=== PATIENT | female | born 1985 | race Hispanic/Latino ===

== ENCOUNTER 2024-09-28 21:03 | Emergency (ER) | payer OTHER ==
[2024-09-28] MEDS ORDERED: METOCLOPRAMIDE 10 MG/2mL INJ ONE (21:38)
[2024-09-28] MEDS ORDERED: DIPHENHYDRAMINE 50 MG/ML VIAL ONE (21:38)
[2024-09-28] MEDS ORDERED: KETOROLAC 30 MG/ML INJ ONE (21:38)
[2024-09-28] MEDS ORDERED: NA CHLORIDE 0.9% 1,000 ML ONE (21:38)
[2024-09-28] MEDS ORDERED: NA CHLORIDE 0.9% 50 ML ONE (21:39)
[2024-09-28 21:51] LABS: Specific Gravity 1.016 (1.005-1.030); Urine Bilirubin NEGATIVE (Negative); Urine Blood Negative (Negative); Urine Clarity Clear (Clear); Urine Color Light-Yellow (Yellow); Urine Glucose NEGATIVE (Negative); Urine Ketones NEGATIVE (Negative); Urine Microscopic Reflex YN NO UMIC; Urine Nitrite NEGATIVE (Negative); Urine Protein NEGATIVE (Negative); Urine Urobilinogen Normal (Normal)
[2024-09-28 21:52] LABS: Specific Gravity 1.016 (1.005-1.030)
[2024-09-28 22:10] LABS: ALT/SGPT 35 U/L (13-56); AST/SGOT 15 U/L (15-37); Albumin 3.6 g/dL (3.4-5.0); Albumin/Globulin Ratio 0.9 (1.1-1.8); Alkaline Phosphatase 101 U/L (45-117); Anion Gap 9.1 mEq/L (5.0-15.0); BUN Blood Urea Nitrogen 10 mg/dL (7-18); Bicarbonate 26 mEq/L (21-32); Bilirubin Total 0.4 mg/dL (0.2-1.0); Globulin 3.9 g/dL (2.3-3.5); Glomerular Filtration Rate 95 ml/min (=/>90); Glucose Level 104 mg/dL (74-106); Potassium 4.1 mEq/L (3.5-5.1); Protein, Total 7.5 g/dL (6.4-8.2); Sodium Level 141 mEq/L (136-145); Troponin High Sensitivity 3.8 pg/mL (<58.9)
[2024-09-28 22:14] LABS: Bilirubin Direct < 0.2 mg/dL (0-0.2); Bilirubin Indirect, Calculated 0.2 mg/dL (0.2-0.8)
[2024-09-28 22:19] LABS: Absolute Eosinophils 0.1 K/uL (0-0.5); Absolute Lymphocytes (CBC) 2.7 K/uL (0.7-4.9); Absolute Monocytes 0.5 K/uL (0.1-1.3); Absolute Neutrophil 4.8 K/uL (1.8-8.0); Basophils % 0.3 % (0-1.3); Eosinophils % 1.4 % (0-4.4); Hematocrit 41.3 % (36.0-45.0); Hemoglobin 14.1 g/dL (12.0-15.0); MCH 30.9 pg (27.0-35.0); MCV 90.7 fL (80-100); MPV 9.9 fL (7.6-11.3); Monocytes % 6.1 % (3.3-12.3); Neutrophils % 59.2 % (41.7-73.7); Platelets 246 thou/uL (152-406); RBC Red Blood Cell Count 4.55 M/uL (3.86-4.86); Red Cell Distribution Width 12.7 % (12.1-15.2)
--- NOTE | 2024-09-28 22:31 | RAD REPORT ---
EXAM: Chest Single View HISTORY: 38 years Female CHEST PAIN COMPARISON: None. FINDINGS: LUNGS/PLEURA: The lungs are clear. No pleural effusions or pneumothorax. No pulmonary edema. CARDIAC/MEDIASTINUM: The cardiac silhouette is within normal limits. UPPER ABDOMEN: No significant abnormality. BONES: No acute abnormality. LINES/TUBES/OTHER: N/A IMPRESSION: No evidence of acute cardiopulmonary disease.
--- NOTE | 2024-09-28 23:20 | RAD REPORT ---
EXAM: Head Brain Wo Cont INDICATION: 38-year-old female with dizziness and headache. COMPARISON: No relevant imaging studies available. TECHNIQUE: TECHNIQUE: Axial CT images of the brain were performed using dose reduction techniques i ncluding automated exposure control and/or adjustment of the mA and/or kV according to patient size, and/or iterative reconstruction techniques. Coronal and sagittal reformatted images were also p erformed. DLP: 884.3. No IV contrast administered. CTDI: 38.785. FINDINGS: Brain parenchyma demonstrates no mass effect, shift, ventriculomegaly, or hemorrhage. Normal elizabeth/white matter differentiation. No extra-axial fluid collection. Osseous structures intact. Bilateral mastoidal air cells and paranasal sinuses are clear. Bilateral intraorbital contents demonstrate no acute abnormality. IMPRESSION: No acute intracranial process. Electronically signed by: Saad Ochoa MD 09/28/2024 11:14 PM CDT RP Due to temporary technical issues with the PACS/Thinkr reporting system, reports are being vivien d by the in-house radiologist without review as a courtesy to ensure prompt reporting the interpreting radiologist is fully responsible for the content of the report. Transcribed Date/Time: 09/28/2024 11:19 PM
--- NOTE | 2024-09-29 00:03 | EDPHYS ---
Physician Documentation [facility] Name: Katelyn Pyle Age: 38 yrs Sex: Female : 1985 Arrival Date: 09/28/2024 Time: 21:03 Bed 8 Private MD: ED Physician Shaq Jim HPI: 09/28 21:30 This 38 yrs old Female presents to ER via Ambulatory with complaints of High cp Blood Pressure, Headache. 21:30 The patient has elevated blood pressure and discovered this at home, with a home cp device. Patient is a 38-year-old female with no significant past medical history who presents to the emergency department with complaints of a general headache for the past few days. Patient reports concern that her blood pressure has been elevated with a systolic pressure of 140-150s. Patient is complaining of right-sided chest pain that radiates down her right arm and pain into her back. 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 - Infectious Disease History:: Denies. - Social history:: Smoking status: Patient denies any tobacco usage or history of. ROS: 21:33 Constitutional: Negative for body aches, chills, fever, poor PO intake, cp 21:33 Eyes: Negative for injury, pain, redness, and discharge, cp 21:33 ENT: Negative for drainage from ear(s), ear pain, sore throat, difficulty swallowing, difficulty handling secretions, 21:33 Cardiovascular: Positive for chest pain, of the right side of chest, Negative for edema, palpitations, 21:33 Respiratory: Negative for cough, shortness of breath, wheezing, 21:33 Abdomen/GI: Negative for abdominal pain, vomiting, diarrhea, constipation, 21:33 Neuro: Positive for dizziness, headache, Negative for altered mental status, loss of consciousness, syncope, weakness, 21:33 All other systems are negative, Exam: 21:28 ECG was reviewed by the Attending Physician. cp 21:35 Constitutional: The patient appears in no acute distress, alert, awake, cp non-diaphoretic, non-toxic, well developed, well nourished, obese, uncomfortable, 21:35 Head/Face: Normocephalic, atraumatic. cp 21:35 Eyes: Periorbital structures: appear normal, Pupils: equal, round, and reactive to light and accomodation, Extraocular movements: intact throughout, Conjunctiva: normal, no exudate, no injection, Sclera: no appreciated abnormality, Lids and lashes: appear normal, bilaterally, 21:35 ENT: External ear(s): are unremarkable, Ear canal(s): are normal, clear, TM's: dullness, bilaterally, Nose: is normal, Mouth: Lips: moist, Oral mucosa: moist, Posterior pharynx: Airway: no evidence of obstruction, patent, 21:35 Neck: ROM/movement: is normal, is supple, without pain, no range of motions limitations, no meningismus, 21:35 Chest/axilla: Inspection: normal, 21:35 Cardiovascular: Rate: normal, Rhythm: regular, Edema: is not appreciated, JVD: is not appreciated, 21:35 Respiratory: the patient does not display signs of respiratory distress, Respirations: normal, no use of accessory muscles, no retractions, labored breathing, is not present, Breath sounds: are clear throughout, no decreased breath sounds, no stridor, no wheezing, 21:35 Abdomen/GI: Inspection: abdomen appears normal, Palpation: abdomen is soft and non-tender, in all quadrants, 21:35 Back: ROM is normal, CVA tenderness, is absent, 21:35 Neuro: Orientation: to person, place \T\ time. Mentation: is normal, Cerebellar function: is grossly normal, Motor: moves all fours, strength is normal, Sensation: is normal, Vital Signs: 21:10 BP 129 / 86; Pulse 77; Resp 16; Temp 97(IR); Pulse Ox 95% on R/A; Weight 107.05 kg (R); cm10 Height 5 ft. 2 in. ; Pain 8/10; 21:44 BP 125 / 84; Pulse 60; Resp 19; Pulse Ox 99% ; al5 22:00 BP 111 / 72; Pulse 74; Resp 16; Pulse Ox 96% ; al5 23:00 BP 116 / 71; Pulse 79; Resp 18; Pulse Ox 100% on R/A; hm5 09/29 00:09 BP 111 / 72; Pulse 71; Resp 18; Pulse Ox 99% on R/A; hm5 09/28 21:10 Body Mass Index 42.34 (107.05 kg, 159 cm) cm10 09/28 21:10 Pain Scale: Adult cm10 MDM: 09/28 21:13 Medical Screening Exam initiated cp 09/29 00:01 Data reviewed: vital signs, nurses notes, lab test result(s), EKG, radiologic studies, cp CT scan, plain films, and as a result, I will discharge patient. 00:01 Differential diagnosis: hypertensive crisis, Malignant HTN, CVA, intracerebral cp hemorrhage. I considered the following discharge prescriptions or medication management in the emergency department Medications were administered in the Emergency Department. See MAR. Independent interpretation of the following test(s) in the Emergency Department EKG: See my EKG interpretation above. Counseling: I had a detailed discussion with the patient and/or guardian regarding the historical points, exam findings, and any diagnostic results supporting the discharge/admit diagnosis, lab results, radiology results, to return to the emergency department if symptoms worsen or persist or if there are any questions or concerns that arise at home. Response to treatment: the patient's symptoms have markedly improved after treatment, and as a result, I will discharge patient. ED course: Patient reports headache markedly improved. Blood pressure remained wnl. Will discharge to home for continued monitoring. 09/28 21:29 Order name: Basic Metabolic Panel; Complete Time: 23:10 09/28 23:10 Interpretation: Normal except: CL 110. 09/28 21:29 Order name: CBC with Diff; Complete Time: 23:10 09/28 21:29 Order name: D-Dimer; Complete Time: 23:10 09/28 21:29 Order name: LFT's; Complete Time: 23:10 09/28 21:29 Order name: Magnesium; Complete Time: 23:10 09/28 21:29 Order name: Troponin HS; Complete Time: 23:10 09/28 21:29 Order name: UA Rfx Narendra Cult if indicated; Complete Time: 23:10 09/28 21:29 Order name: Test, Urine; Complete Time: 23:10 09/28 21:29 Order name: XRAY Chest (1 view); Complete Time: 23:10 09/28 23:11 Interpretation: Report review. cp 09/28 21:29 Order name: CT Head Brain wo Cont cp 09/28 23:44 Interpretation: Report reviewed. cp 09/28 21:29 Order name: EKG; Complete Time: 21:30 cp 09/28 21:29 Order name: Cardiac monitoring; Complete Time: 21:33 cp 09/28 21:29 Order name: EKG - Nurse/Tech; Complete Time: 21:33 cp 09/28 21:29 Order name: IV Saline Lock; Complete Time: 21:33 cp 09/28 21:29 Order name: Labs collected and sent; Complete Time: 21:33 cp 09/28 21:29 Order name: O2 Per Protocol; Complete Time: 21:44 cp 09/28 21:29 Order name: O2 Sat Monitoring; Complete Time: :33 cp EC/17 21:28 Rate is 74 beats/min. Rhythm is regular. CO interval is normal. QRS interval is normal. cp QT interval is normal. T waves are Inverted in leads III, aVR. Interpreted by me. Reviewed by me. Administered Medications: 21:45 Drug: NS 0.9% IV 1000 ml IV at 1000 ml once; to be given as a bolus over 60 minutes 5 Route: IV; Rate: 1000 ml; Site: right antecubital; 22:45 Follow up: IV Status: Completed infusion; IV Intake: 1000ml vc1 21:45 Drug: metoCLOPramide IVP 10 mg IVP once; over 1 to 2 minutes Route: IVP; Site: right 5 antecubital; 23:07 Follow up: Response: No adverse reaction 5 21:45 Drug: diphenhydrAMINE IVP 25 mg IVP once Route: IVP; Site: right antecubital; 5 23:08 Follow up: Response: No adverse reaction [facility] 21:45 Drug: Ketorolac IVP 15 mg IVP once Route: IVP; Site: right antecubital; [facility] 23:07 Follow up: Response: No adverse reaction [facility] Disposition: 09/29 02:34 Co-signature as Attending Physician, Shaq Jim MD I reviewed the patient's care rt provided by the Advanced Practice Provider and agree with the diagnosis and treatment plan. Disposition Summary: 09/29/24 00:02 Discharge Ordered Notes: Location: Home cp Problem: new cp Symptoms: have improved cp Condition: Stable cp Diagnosis - Headache cp - Chest pain, unspecified cp Followup: cp - With: Private Physician - When: 2 - 3 days - Reason: Recheck today's complaints Discharge Instructions: - Discharge Summary Sheet cp - Nonspecific Chest Pain, Adult cp - General Headache Without Cause cp - Migraine Headache cp - Aspirin and Your Heart cp Forms: - Medication Reconciliation Form cp - Antibiotic Education cp - Prescription Opioid Use cp - Patient Portal Instructions cp - Leadership Thank You Letter cp Prescriptions: - Anaprox DS 550 mg Oral Tablet - take 1 tablet ORAL route every 12 hours As needed; 20 tablet; Refills: 0, cp Product Selection Permitted Signatures: Dispatcher [employer] EDMS Cas Lopez PA PA cp Shaq Jim MD MD rt Carlita Tong RN RN cm10 Renetta Fisher RN RN hm5 Cecelia Barry RN vc1 Corrections: (The following items were deleted from the chart) 09/28 21:30 21:30 Head Brain Wo Cont+CT.RAD.BRZ ordered. EDMS EDMS
--- NOTE | 2024-09-29 00:03 | ER ---
Nurse's Notes [facility] Name: Katelyn Pyle Age: 38 yrs Sex: Female : 1985 Arrival Date: 09/28/2024 Time: 21:03 Bed 8 Private MD: Diagnosis: Headache;Chest pain, unspecified Presentation: 09/28 21:10 Chief complaint: Patient states: Headache onset a few days ago and high blood pressure. cm10 Pt states that she does not have a history of HTN. Took her BP and her systolic was 140-150. Pt also reports right sided chest pain that radiates to her right arm. Coronavirus screen: Client denies travel out of the [place] in the last 14 days. Ebola Screen: Patient denies travel to an Ebola-affected area in the 21 days before illness onset. Initial Sepsis Screen: Does the patient meet any 2 criteria? No. Patient's initial sepsis screen is negative. Does the patient have a suspected source of infection? No. Patient's initial sepsis screen is negative. Risk Assessment: Do you want to hurt yourself or someone else? Patient reports no desire to harm self or others. Onset of symptoms was September 28, 2024. 21:10 Method Of Arrival: Ambulatory 10 21:10 Acuity: MAAME 3 cm10 Triage Assessment: 21:12 General: Appears in no apparent distress. comfortable, Behavior is calm, cooperative. cm10 Neuro: No deficits noted. Level of Consciousness is awake, alert, obeys commands, Oriented to person, place, time, situation, Appropriate for age. Respiratory: No deficits noted. Airway is patent Respiratory effort is even, unlabored, Respiratory pattern is regular, symmetrical. 21:29 Pain: Also complains of no other associated symptoms. 5 21:31 Headache History: Denies prior headaches. Pain: Complains of pain in chest, headache. 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 - Infectious Disease History:: Denies. - Social history:: Smoking status: Patient denies any tobacco usage or history of. Screenin:23 [facility] ED Fall Risk Assessment (Adult) History of falling in the last 3 months, hm5 including since admission No falls in past 3 months (0 pts) Confusion or Disorientation No (0 pts) Intoxicated or Sedated No (0 pts) Impaired Gait No (0 pts) Mobility Assist Device Used No (0 pt) Altered Elimination No (0 pt) Score/Fall Risk Level 0 - 2 = Low Risk. [facility] ED Fall Risk Assessment (Adult) Score/Fall Risk Level 0 - 2 = Low Risk Oriented to surroundings, Maintained a safe environment, Hourly rounding (assess needs \T\ fall precautionary measures) done. Abuse screen: Denies threats or abuse. Nutritional screening: No deficits noted. Tuberculosis screening: No symptoms or risk factors identified. Assessment: 21:23 General: Appears in no apparent distress. Behavior is calm, cooperative, appropriate hm5 for age. Pain: Complains of pain in face and head Pain does not radiate. Pain currently is 5 out of 10 on a pain scale. Quality of pain is described as aching, sharp, Pain began gradually. Neuro: No deficits noted. Cardiovascular: Reports chest pain, Denies diaphoresis, lightheadedness, nausea, palpitations, shortness of breath, syncope, vomiting, Heart tones S1 S2 present Capillary refill < 3 seconds is brisk Patient's skin is warm and dry. Pulses are all present. Rhythm is sinus rhythm Chest pain is described as mild, quality is sharp, is located in right began 1 day ago episodes are intermittent. Respiratory: No deficits noted. Respiratory: Denies shortness of breath. GI: No deficits noted. Patient currently denies abdominal pain, nausea, vomiting. : No deficits noted. No signs and/or symptoms were reported regarding the genitourinary system. EENT: No deficits noted. No signs and/or symptoms were reported regarding the EENT system. Derm: No deficits noted. No signs and/or symptoms reported regarding the dermatologic system. Musculoskeletal: No deficits noted. No signs and/or symptoms reported regarding the musculoskeletal system. 23:33 Reassessment: Patient appears in no apparent distress at this time. No changes from al5 previously documented assessment. Patient and/or family updated on plan of care and expected duration. Pain level reassessed. Patient is alert, oriented x 3, equal unlabored respirations, skin warm/dry/pink. Vital Signs: 21:10 BP 129 / 86; Pulse 77; Resp 16; Temp 97(IR); Pulse Ox 95% on R/A; Weight 107.05 kg (R); cm10 Height 5 ft. 2 in. ; Pain 8/10; 21:44 BP 125 / 84; Pulse 60; Resp 19; Pulse Ox 99% ; al5 22:00 BP 111 / 72; Pulse 74; Resp 16; Pulse Ox 96% ; al5 23:00 BP 116 / 71; Pulse 79; Resp 18; Pulse Ox 100% on R/A; hm5 09/29 00:09 BP 111 / 72; Pulse 71; Resp 18; Pulse Ox 99% on R/A; hm5 09/28 21:10 Body Mass Index 42.34 (107.05 kg, 159 cm) cm10 09/28 21:10 Pain Scale: Adult cm10 ED Course: 09/28 21:05 Patient arrived in ED. mr 21:08 Cas Lopez PA is PHCP. cp 21:08 Shaq Jim MD is Attending Physician. cp 21:12 Triage completed. cm10 21:12 Arm band placed on right wrist. Patient placed in an exam room, on a stretcher. cm10 21:22 Zenia Saenz, DAVE is Primary Nurse. al5 21:22 Inserted saline lock: 20 gauge in right antecubital area, using aseptic technique. al5 Blood collected. Flushed with 10 mL NS. 21:29 No provider procedures requiring assistance completed. hm5 21:30 Patient has correct armband on for positive identification. Bed in low position. Call [facility] light in reach. Side rails up X 1. Provided Education on: plan of care. 21:33 CBC with Diff Sent. 5 21:33 D-Dimer Sent. 5 21:33 LFT's Sent. 5 21:33 Magnesium Sent. 5 21:33 Troponin HS Sent. 5 21:33 Basic Metabolic Panel Sent. hm5 21:44 Test, Urine Sent. 5 21:44 UA Rfx Narendra Cult if indicated Sent. hm5 22:29 XRAY Chest (1 view) In Process Unspecified. EDMS 22:37 CT Head Brain wo Cont In Process Unspecified. EDMS 09/29 00:09 IV discontinued, intact, bleeding controlled, No redness/swelling at site. Pressure vc1 dressing applied. Administered Medications: 09/28 21:45 Drug: NS 0.9% IV 1000 ml IV at 1000 ml once; to be given as a bolus over 60 minutes hm5 Route: IV; Rate: 1000 ml; Site: right antecubital; 22:45 Follow up: IV Status: Completed infusion; IV Intake: 1000ml vc1 21:45 Drug: metoCLOPramide IVP 10 mg IVP once; over 1 to 2 minutes Route: IVP; Site: right 5 antecubital; 23:07 Follow up: Response: No adverse reaction hm5 21:45 Drug: diphenhydrAMINE IVP 25 mg IVP once Route: IVP; Site: right antecubital; hm5 23:08 Follow up: Response: No adverse reaction 5 21:45 Drug: Ketorolac IVP 15 mg IVP once Route: IVP; Site: right antecubital; hm5 23:07 Follow up: Response: No adverse reaction 5 Medication: 21:31 VIS not applicable for this client. hm5 Intake: 22:45 IV: 1000ml; Total: 1000ml. vc1 Outcome: 09/29 00:02 Discharge ordered by . cp 00:09 Discharged to home ambulatory, with family, vc1 00:09 Condition: stable 00:09 Discharge instructions given to patient, Instructed on discharge instructions, follow up and referral plans. medication usage, Demonstrated understanding of instructions, follow-up care, medications, Prescriptions given X 1, 00:19 Patient left the ED. 5 Signatures: Dispatcher [employer] EDUT Todd Fariba, Reg Reg mr Cas Lopez, CECI PA Cecelia Roy RN RN vc1 Carlita Tong RN RN cm10 Zenia Saenz RN RN al5 Renetta Fisher RN RN 5 Corrections: (The following items were deleted from the chart) 09/28 21:30 21:29 Condition: stable hm5 hm5
[2024-09-29 01:04] VITALS: TEMP 97
[2024-09-29 01:10] VITALS: BP 111/72; O2SAT 99
--- NOTE | 2024-09-30 16:47 | EKG ---
Test Date: 2024-09-28 Test Time: 21:21:09 Sandblast Operator: MELISSA MEASUREMENT RESULTS: Intervals: Rate: 74 OH: 166 QRSD: 88 QT: 404 QTc: 448 [place]: P: 43 OH: 166 QRS: 29 T: 14 INTERPRETIVE STATEMENTS: Normal sinus rhythm Normal ECG No previous ECG available for comparison Electronically Signed On 09-30-24 16:44:43 CDT by José Luna
== END 2024-09-29 00:19 | disposition home or self-care (01) ==
LOC: ER 21:03
DX: R51.9 Headache, unspecified (principal); R07.9 Chest pain, unspecified
CPT/HCPCS: 96361; 93005; 85025; 80048; 36415; 83735; 81025; 85379; 80076; 81003; 84484; 70450; 71045; 96375; 96374; 99284; J2765; J1200; J7030